=== PATIENT | male | born 1985 | race Native Hawaiian/Other Pacific Islander ===

== ENCOUNTER 2018-12-26 11:20 | Emergency (ER) | payer OTHER ==
[~2018-12-26] VITALS: Ht 165.1 cm; Wt 64.9 kg
[2018-12-26 13:11] LABS: PLATELET COUNT 143 K/uL (142-355)
[2018-12-26 14:05] VITALS: BP 134/62; TEMP 99.4
== END 2018-12-26 14:05 | disposition home or self-care (01) ==
LOC: ED 11:20
PROVIDERS: Emergency Medicine
DX: J02.0 Streptococcal pharyngitis (principal)
CPT/HCPCS: 36415; 80053; 85027; 87502; 87651; 99283; J0561